=== PATIENT | female | born 1995 | race Caucasian/White ===

== ENCOUNTER 2020-09-03 23:54 | Inpatient (IN) ==
[2020-09-04 01:32] LABS: Basophils # 0.1 K/mcL (0.0-0.2); Basophils % 0.4 %; Eosinophils # 0.1 K/mcL (0.0-0.6); Hematocrit 41.6 % (35.3-44.9); Hemoglobin 13.4 g/dL (11.5-15.4); Immature Granulocytes % 0.5 % (0-4); Lymphocytes # 3.8 K/mcL (0.6-4.6); Lymphocytes % 29.4 %; Mean Corpuscular HGB Conc 32.2 g/dL (31.6-35.5); Mean Corpuscular Hemoglobin 27.9 pg (28.0-33.3); Mean Corpuscular Volume 86.7 fL (83.0-100.0); Mean Platelet Volume 10.4 fL (9.4-12.4); Monocytes % 7.4 %; Platelet Count 410 K/mcL (140-400); Red Cell Distribution Width 13.5 % (11.5-14.5); Segmented Neutrophils % 61.3 %; White Blood Count 13.1 K/mcL (4.3-11.1)
[2020-09-04 01:52] LABS: Acetaminophen < 10 mcg/mL (10-20); BUN/Creatinine Ratio 19 (6-26); Blood Urea Nitrogen 16 mg/dL (6-20); Calcium 9.8 mg/dL (8.6-10.3); Carbon Dioxide 27 mEq/L (23-29); Chloride 101 mEq/L (98-107); Chol/HDL Ratio 3.8 (0-4.9); Cholesterol 176 mg/dL (< 200); Ethanol < 10 mg/dL (Less than 10); Glucose 101 mg/dL (70-105); HDL Cholesterol 46 mg/dL (40-59); LDL Cholesterol,Calculated 98 mg/dL (< 100); Osmolality,Calculated 285 (280-300); Potassium 3.7 mEq/L (3.5-5.1); Salicylate < 2.5 mg/dL (15.0-30.0); Sodium 137 mEq/L (136-145); Triglycerides 160 mg/dL (< 150); eGFR For African Americans > 60 (> 60); eGFR For Non-African Americans > 60 (> 60)
[2020-09-04 02:00] LABS: Bilirubin,Urine Negative (Negative); Blood,Urine Negative (Negative); Clarity,Urine Clear (Clear); Color,Urine Colorless (Yellow); Glucose,Urine (UA) Normal (Normal); Ketones,Urine Negative (Negative); Leukocyte Esterase,Urine Negative (Negative); Nitrite,Urine Negative (Negative); Protein,Urine Negative (Neg-Trace); Specific Gravity,Urine 1.019 (1.010-1.025); Urobilinogen,Urine Normal (Normal)
[2020-09-04 02:11] LABS: Amphetamine Screen,Urine Negative ng/mL (Cutoff=1000); Barbiturate Screen,Urine Negative ng/mL (Cutoff=200); Benzodiazepines Screen,Urine Negative ng/mL (Cutoff=200); Cannabinoid Screen,Urine Negative ng/mL (Cutoff = 50); Cocaine Screen,Urine Negative ng/mL (Cutoff= 300); Opiate Screen,Urine Negative ng/mL (Cutoff=300); Phencyclidine Screen,Urine Negative ng/mL (Cutoff=25)
[2020-09-04] MEDS ORDERED: Haloperidol Lactate 5 MG/ML VIAL IM PRN (03:12)
[2020-09-04] MEDS ORDERED: traZODone 50 MG TABLET PO PRN (03:12)
[2020-09-04] MEDS ORDERED: hydrOXYzine pamoate 25 MG CAPSULE PO PRN (03:12)
[2020-09-04] MEDS ORDERED: *HR* LORazepam 1 MG TABLET PO PRN (03:12)
[2020-09-04] MEDS ORDERED: Ibuprofen 400 MG TABLET PO PRN (03:12)
[2020-09-04] MEDS ORDERED: Mag Hydrox/Al Hydrox/Simeth 30 ML UDC PO PRN (03:12)
[2020-09-04] MEDS ORDERED: *HR* LORazepam 2 MG/ML VIAL IM PRN (03:12)
[2020-09-04] MEDS ORDERED: MOM Conc 10 ML UD.LIQ PO PRN (03:12)
[2020-09-04] MEDS ORDERED: haloperidoL 5 MG TABLET PO PRN (03:12)
[2020-09-04 03:50] LABS: Estimated Average Glucose 114 mg/dl; Hemoglobin A1C 5.6 %
[2020-09-04] MEDS ORDERED: ARIPiprazole 5 MG TABLET PO SCH (11:30)
[2020-09-04 12:55] VITALS: BP 129/79
== END 2020-09-04 15:20 | disposition other institution (70) | DRG 885 ==
LOC: EMEROOARM 23:54 → 1ANU 09-04 03:11
PROVIDERS: ADMIT Psychiatry & Neurology Psychiatry; ATTEND Psychiatry & Neurology Psychiatry

== ENCOUNTER 2020-09-04 15:25 | Observation (INO) ==
[2020-09-04] MEDS ORDERED: Naloxone 0.4 MG/ML INJ IVP PRN (15:43)
[2020-09-04] MEDS ORDERED: Perflutren Lipid Microsphere 1.3 ML in 0.9 % Sodium Chloride 8.7 ML IVP PRN (15:49)
[2020-09-04] MEDS ORDERED: Acetaminophen 325 MG TABLET PO PRN (15:49)
[2020-09-04] MEDS ORDERED: Haloperidol Lactate 5 MG/ML VIAL IM PRN (15:53)
[2020-09-04] MEDS ORDERED: *HR* LORazepam 2 MG/ML VIAL IVP PRN (15:53)
[2020-09-04] MEDS ORDERED: Ondansetron 4 MG/2 ML VIAL IVP PRN (16:23)
[2020-09-04 16:30] LABS: INR 1.2
[2020-09-04] MEDS ORDERED: 0.9 % Sodium Chloride 1,000 ML IVC ONE (18:12)
[2020-09-04] MEDS: 0.9 % Sodium Chloride 1,000 ML IVC SCH (19:31)
[2020-09-04 21:29] LABS: Bilirubin,Urine Negative (Negative); Blood,Urine Negative (Negative); Clarity,Urine Clear (Clear); Color,Urine Light-Yellow (Yellow); Glucose,Urine (UA) Normal (Normal); Ketones,Urine 10 mg/dL (Negative); Leukocyte Esterase,Urine Negative (Negative); Nitrite,Urine Negative (Negative); Protein,Urine Trace mg/dL (Neg-Trace); Specific Gravity,Urine 1.021 (1.010-1.025); Urobilinogen,Urine Normal (Normal)
[2020-09-05 01:54] LABS: Basophils % 0.3 %; Eosinophils % 0.1 %; Hematocrit 38.9 % (35.3-44.9); Hemoglobin 12.5 g/dL (11.5-15.4); Immature Granulocytes % 0.4 % (0-4); Lymphocytes # 1.7 K/mcL (0.6-4.6); Lymphocytes % 11.4 %; Mean Corpuscular HGB Conc 32.1 g/dL (31.6-35.5); Mean Corpuscular Hemoglobin 27.9 pg (28.0-33.3); Mean Corpuscular Volume 86.8 fL (83.0-100.0); Mean Platelet Volume 10.4 fL (9.4-12.4); Monocytes # 0.8 K/mcL (0.0-1.3); Monocytes % 5.2 %; Neutrophils # 12.2 K/mcL (1.6-8.9); Platelet Count 368 K/mcL (140-400); Red Blood Count 4.48 M/mcL (3.82-4.97); Red Cell Distribution Width 13.5 % (11.5-14.5); Segmented Neutrophils % 82.6 %; White Blood Count 14.7 K/mcL (4.3-11.1)
[2020-09-05 02:22] LABS: BUN/Creatinine Ratio 22 (6-26); Blood Urea Nitrogen 13 mg/dL (6-20); Carbon Dioxide 22 mEq/L (23-29); Chloride 105 mEq/L (98-107); Glucose 130 mg/dL (70-105); Magnesium 2.1 mg/dL (1.6-2.6); Osmolality,Calculated 286 (280-300); Phosphorous 3.1 mg/dL (2.7-4.5); Potassium 3.9 mEq/L (3.5-5.1); Sodium 137 mEq/L (136-145); Troponin I 0.03 ng/mL (< 0.04); eGFR For African Americans > 60 (> 60); eGFR For Non-African Americans > 60 (> 60)
[2020-09-05] MEDS: 0.9 % Sodium Chloride 1,000 ML IVC SCH (06:24)
[2020-09-05] MEDS ORDERED: ARIPiprazole 5 MG TABLET PO SCH (09:00)
[2020-09-05 11:12] VITALS: BP 107/66
== END 2020-09-05 14:28 ==
LOC: 3BNU → SUATTDRO 15:41
PROVIDERS: ADMIT Student in an Organized Health Care Education/Training Program; ATTEND Internal Medicine